=== PATIENT | female | born 1970 | race Caucasian/White ===

== ENCOUNTER 2018-02-05 05:18 | Day surgery (SDC) | payer OTHER ==
[~2018-02-05] VITALS: Ht 152.4 cm; Wt 73.2 kg
[~2018-02-05 05:18] MED LIST: IBUP200T64 PO; OMEGA 3 PO; OMEP-110 PO
[2018-02-05] MEDS ORDERED: LACTATED RINGERS 1,000 ML IV SCH (06:00)
[2018-02-05 06:03] LABS: HCG UR SG 1.023 (1.003-1.030)
[2018-02-05] MEDS ORDERED: BUPIVACAINE/PF 0.25% ONE (06:11)
[2018-02-05] MEDS ORDERED: EPINEPHRINE 1 MG/ML, 1ML ONE (06:11)
[2018-02-05 06:24] VITALS: BP 117/78
[2018-02-05] MEDS ORDERED: FENTANYL PF 250 MCG/5ML ONE ×2 (06:26→08:17)
[2018-02-05] MEDS ORDERED: MIDAZOLAM 1 MG/ML, 2ML ONE (06:26)
[2018-02-05] MEDS ORDERED: PROPOFOL 10 MG/ML, 20ML ONE (06:27)
[2018-02-05] MEDS ORDERED: ROCURONIUM 10 MG/ML,10ML ONE (06:27)
[2018-02-05] MEDS ORDERED: DEXAMETHASONE 4 MG/ML, 1ML ONE ×2 (06:28)
[2018-02-05] MEDS ORDERED: GLYCOPYRROLATE 0.4 MG/2 ML, 2ML ONE (06:28)
[2018-02-05] MEDS ORDERED: NEOSTIGMINE 1 MG/ML, 10ML ONE (06:28)
[2018-02-05] MEDS ORDERED: ONDANSETRON 2MG/ML, 2ML ONE (06:28)
[2018-02-05] MEDS ORDERED: SODIUM CHLORIDE 0.9% PF 10ML ONE (06:29)
[2018-02-05] MEDS ORDERED: CEFAZOLIN 1,000 MG ONE ×2 (06:29)
[2018-02-05] MEDS ORDERED: PROMETHAZINE 25 MG/ML, 1ML IV PRN (07:00)
[2018-02-05] MEDS ORDERED: hydrALAzine 20 MG/ML, 1ML IV PRN (07:00)
[2018-02-05] MEDS ORDERED: MEPERIDINE/PF 25MG/0.5ML IVPush PRN (07:00)
[2018-02-05] MEDS ORDERED: HYDROmorphone 1 MG/ML, 1ML IV PRN (07:00)
[2018-02-05] MEDS ORDERED: morphine SULFATE 10 MG/ML, 1ML IV PRN (07:00)
[2018-02-05] MEDS ORDERED: LABETALOL 5MG/ML, 20ML IV PRN (07:00)
[2018-02-05] MEDS ORDERED: PROMETHAZINE 12.5 MG SUPP PR PRN (07:00)
[2018-02-05] MEDS ORDERED: ONDANSETRON 2MG/ML, 2ML IVPush PRN ×2 (07:00→12:30)
[2018-02-05] MEDS ORDERED: KETOROLAC 30 MG/1 ML ONE (08:59)
[2018-02-05] MEDS ORDERED: MEPERIDINE/PF 50 MG/ML ONE (09:39)
[2018-02-05] MEDS ORDERED: FENTANYL PF 100 MCG/2ML ONE (09:39)
[2018-02-05] MEDS ORDERED: ACETAMINOPHEN 650 MG/20.3 ML UDC ONE (09:39)
[2018-02-05] MEDS ORDERED: OXYcodone 5 MG/5 ML ORAL.SOL UDC ONE ×2 (09:40→10:12)
[2018-02-05] MEDS: FENTANYL PF 100 MCG/2ML IV PRN ×2 (09:45→09:56)
[2018-02-05] MEDS: OXYcodone 5 MG/5 ML ORAL.SOL UDC PO PRN ×2 (09:45→10:15)
[2018-02-05] MEDS: ACETAMINOPHEN 325 MG TABLET PO PRN ×2 (09:45→10:15)
[2018-02-05] MEDS ORDERED: ACETAMINOPHEN 325 MG TABLET ONE (10:12)
[2018-02-05] MEDS ORDERED: HYDROmorphone 2 MG/ML, 1ML ONE (12:09)
[2018-02-05] MEDS ORDERED: HYDROcodone/APAP 5/325 TABLET PO PRN (12:30)
[2018-02-05] MEDS ORDERED: ACETAMINOPHEN 325 MG TABLET PO PRN (12:30)
[2018-02-05] MEDS ORDERED: HYDROmorphone 2 MG/ML, 1ML IVPush PRN (12:30)
[2018-02-05] MEDS ORDERED: OXYcodone/APAP 5/325MG TABLET PO PRN (12:30)
[2018-02-05] MEDS ORDERED: ZOLPIDEM 5MG TABLET PO PRN (12:30)
[2018-02-05] MEDS ORDERED: IBUPROFEN 600 MG TABLET PO SCH (16:00)
[2018-02-05] MEDS ORDERED: SIMETHICONE 80 MG CHEW TAB PO SCH (21:00)
[2018-02-05] MEDS ORDERED: DOCUSATE 100 MG CAPSULE PO SCH (21:00)
== END 2018-02-05 14:15 ==
LOC: OUT 05:18
PROVIDERS: ATTEND Obstetrics & Gynecology Female Pelvic Medicine and Reconstructive Surgery
DX: N39.3 Stress incontinence (female) (male) (principal); N92.1 Excessive and frequent menstruation with irregular cycle; N94.6 Dysmenorrhea, unspecified; N94.10 Unspecified dyspareunia; N81.89 Other female genital prolapse; K21.9 Gastro-esophageal reflux disease without esophagitis; Z98.890 Other specified postprocedural states
CPT/HCPCS: 58552; 81025; 88307; J0171; J0690; J1100; J1170; J1885; J2250; J2405; J2704; J2710; J3010; J3490; J7120